=== PATIENT | female | born 1960 | race Caucasian/White ===

== ENCOUNTER → 2019-04-24 | Outpatient (CLI) | payer OTHER ==
--- NOTE | 2019-04-24 11:14 | Diagnostic Imaging Report ---
EXAMINATION: CHEST 2 VIEWS INDICATION: Cough COMPARISON: None FINDINGS: LINES/TUBES:None LUNGS:The lungs are well-inflated. No focal consolidation or pulmonary edema. PLEURA:No pleural effusion or pneumothorax. MEDIASTINUM:The cardiomediastinal silhouette appears normal in size and shape. BONES/SOFT TISSUES:No acute osseous injury. ABDOMEN:No free air under the diaphragm. IMPRESSION: No focal pneumonia or pulmonary edema. Signed by: Jeremi Bonilla MD on 04/24/2019 11:11 AM
--- NOTE | 2019-04-24 11:15 | Diagnostic Imaging Report ---
EXAMINATION: ELBOW LEFT COMPLETE INDICATION: Left elbow pain COMPARISON: None FINDINGS: No acute fracture or dislocation. Alignment is anatomic. No elbow joint effusion. Soft tissues appear unremarkable. IMPRESSION: No acute osseous injury. Signed by: Jeremi Bonilla MD on 04/24/2019 11:12 AM
== END ==
LOC: RAD 10:33
PROVIDERS: ATTEND Internal Medicine
DX: M25.522 Pain in left elbow (principal); R05 Cough
CPT/HCPCS: 71046